=== PATIENT | female | born 1980 ===

== ENCOUNTER 2019-12-21 09:35 | Inpatient (IN) | payer OTHER ==
[2019-12-21] MEDS ORDERED: LIDOCAINE (2%) 20 MG/1 ML VIAL 20 ML MDV INFILTRATI ONE (11:16)
[2019-12-21] MEDS ORDERED: MINERAL OIL 30 ML ORAL LIQD PO PRN (11:16)
[2019-12-21] MEDS ORDERED: fentaNYL 100 MCG/2 ML INJ IV PRN (11:16)
[2019-12-21] MEDS ORDERED: TERBUTALINE 1 MG/1 ML INJ SUB-Q PRN (11:16)
[2019-12-21] MEDS ORDERED: ePHEDrine SULFATE 50 MG/1 ML INJ IV PRN (11:16)
--- NOTE | 2019-12-21 11:27 | History and Physical Report ---
History of Present Illness Date of examination: 12/21/19 Date of admission: 12/21/19 09:35 Chief complaint: Here for induction of labor. History of present illness: 39 year old presents to L&D for scheduled induction of labor. Patient received care at [facility] and records are available. LMP unknown. EDC 12/25/2020 based on US. significant for the following: gestational diabetes (has been taking Metformin), advanced maternal age, late entry to care, UTI (treated with Macrobid). labs are as follows: O+, antibody screen negative, rubella immune, hepatitis B surfacen antigen negative, RPR nonreactive, HIV negative, gonorrhea negative, chlamydia negative, GBS negative, 1 hour sugar test 152, 3 hour OGTT 85/169/157/145. Past History Past Medical History: no pertinent history, other (first spouse of HIV/AIDS (pt. tested negative)) Past Surgical History: no surgical history RESIDENTIAL MANAGER History: denies: chlamydia, gonorrhea, hepatitis B, hepatitis C, herpes, HIV, syphilis, trichomonas Family/Genetic History: none Social history: single, lives with family, full code. denies: smoking, alcohol abuse, prescription drug abuse, IV drug use - Obstetrical History Expected Date of Delivery: 12/26/19 Actual Gestation: 39 Week(s) 2 Day(s) : 6 Para: 5 Hx # Term Pregnancies: 5 Number of Pregnancies: 0 Spontaneous Abortions: 0 Induced : 0 Number of Living Children: 5 Medications and Allergies Active Meds: Active Medications Ephedrine Sulfate (Ephedrine Sulfate) 10 mg IV Q2M PRN PRN Reason: Hypotension Fentanyl (Sublimaze) 100 mcg IV Q2H PRN PRN Reason: Pain,Severe (7-10) LABOR PAIN Oxytocin/Sodium Chloride (Pitocin/Ns 30 Unit/500ml) 30 units in 500 mls @ 2 mls/hr IV TITR STACEY; Protocol Lactated Ringer's (Lactated Ringers) 1,000 mls @ 125 mls/hr IV DIRECT STACEY Lidocaine (Xylocaine 2%) 20 ml INFILTRATI ONCE ONE Stop: 12/21/19 11:17 Mineral Oil (Mineral Oil) 30 ml PO QHS PRN PRN Reason: Constipation Terbutaline Sulfate (Brethine) 0.25 mg SUB-Q ONCE PRN PRN Reason: Hyperstimulation/Hypertonicity Review of Systems All systems: negative (irregular mild contractions) - Vital Signs Vital signs: Vital Signs Pulse Pulse Ox 61 99 12/21/19 10:15 12/21/19 10:15 Temp Pulse Resp BP Pulse Ox 98.7 F 75 16 127/84 100 12/21/19 10:18 12/21/19 11:15 12/21/19 10:18 12/21/19 10:24 12/21/19 11:15 - Physical Exam Abdomen: Positive: normal appearance, soft. Negative: distention, tenderness, guarding, rigidity Genitourinary (Female): Positive: normal external genitalia, normal perenium. Negative: perineal/vulvar lesions (no lesions seen on careful exam with bright light upon admission) Uterus: Positive: enlarged. Negative: tender Anus/Rectum: Positive: normal perianal skin Extremities: Positive: normal - Obstetrical FHR: category 1 Uterine Contraction Monitor Mode: External Cervical Dilatation: 3.5 Cervical Effacement Percentage: 80 station: -2 Uterine Contraction Pattern: Irregular Uterine Contraction Intensity: Mild Results All other labs normal. Assessment and Plan A: at 39 weeks, 2 days gestation. Advanced maternal age. Gestational diabetes. GBS negative. P: Admit for scheduled IOL. Continuous EFM. Monitor blood sugars. Pitocin induction of labor. Discussed Pitocin induction of labor with patient and patient consented to Pitocin inductin of labor.
[2019-12-21] MEDS ORDERED: OXYTOCIN DRIP 30 UNITS/500 ML BAG IV SCH (12:00)
[2019-12-21 12:35] LABS: Hematocrit 32.9 % (30.3-42.9); Hemoglobin 10.9 gm/dl (10.1-14.3); Mean Corpuscular HGB Conc 33 % (30-34); Mean Corpuscular Volume 80 fl (79-97); Platelet Count 173 K/mm3 (140-440); Red Blood Count 4.11 M/mm3 (3.65-5.03); Red Cell Distribution Width 15.3 % (13.2-15.2)
[2019-12-21 13:01] LABS: Hepatitis C Virus Antibody Non-Reactive (NonReactive)
[2019-12-21] MEDS: LACTATED RINGERS 1,000 ML IV SCH (18:33)
[2019-12-21] MEDS ORDERED: diphenhydrAMINE 50 MG/ML VIAL IV PRN (20:29)
[2019-12-21] MEDS ORDERED: NalbUPHINE 10 MG/1 ML INJ IV PRN (20:29)
[2019-12-21] MEDS ORDERED: ONDANSETRON 4 MG/2 ML INJ IV PRN (20:29)
[2019-12-21] MEDS ORDERED: DEXMEDETOMIDINE 200 MCG/2 ML VIAL IV ONE (20:33)
--- NOTE | 2019-12-21 21:04 | Anesthesia Consultation ---
Anesthesia Consult and Med Hx Date of service: 12/21/19 - Airway Anesthetic Teeth Evaluation: Good ROM Head & Neck: Adequate Mental/Hyoid Distance: Adequate Mallampati Class: Class II Intubation Access Assessment: Probably Good - Pulmonary Exam CTA: Yes - Cardiac Exam Cardiac Exam: RRR - Pre-Operative Health Status ASA Pre-Surgery Classification: ASA2 Proposed Anesthetic Plan: Epidural - Pulmonary Hx Smoking: No Hx Asthma: No COPD: No Hx Pneumonia: No Hx Sleep Apnea: No - Cardiovascular System Hx Hypertension: No - Central Nervous System Hx Seizures: No Hx Psychiatric Problems: No - Gastrointestinal Hx Gastroesophageal Reflux Disease: No - Endocrine Hx End Stage Renal Disease: No Hx Non-Insulin Dependent Diabetes: Yes Hx Hypothyroidism: No Hx Hyperthyroidism: No - Hematic Hx Anemia: No Hx Sickle Cell Disease: No
--- NOTE | 2019-12-21 21:05 | Progress Note ---
Labor Epidural - Labor Epidural Start Time: 20:35 Stop Time: 21:00 Performed by:: HANNAH STOKES ([facility]) Procedure: Patient is requesting a laboring epidural for laboring pain. Patient IDed, H&P reviewed, all questions and concerns were answered, and consent was signed. Timeout was performed at bedside. Patient in sitting position. Sterile prep and drape was performed. 3ml of 1% lidocaine skin wheal at L[3]- L [4]. 18- gauge Touhy epidural needle was advanced to loss of resistance with air technique. Negative CSF negative blood. Epidural catheter advanced to [11] centimeters. [-] Aspiration [-] test dose. Sterile dressing applied. Patient tolerated procedure.
[2019-12-21] MEDS: fentaNYL-BUPIV 2 MCG/ML-0.125% 200 MCG/100 ML BAG EPIDURAL SCH (21:28)
--- NOTE | 2019-12-22 02:18 | Event Note ---
Date: 12/22/19 SVE 5-6/100/-2/BBOW. Category 1 FHR tracing.
--- NOTE | 2019-12-22 03:40 | Ultrasound Report ---
Limited OB ultrasound INDICATION: Imaging is requested to evaluate estimated weight FINDINGS: The femur length is 7.65 cm = 39 weeks 1 day Biparietal diameter is 9.54 cm = 39 weeks 0 days Abdominal circumference is 33.6 cm = 38 weeks 3 days Abdominal circumference is 34.34 cm = 38 weeks 2 days The estimated weight is 3528 g. Sonographic age is 38 weeks 5 days heart rate is 145 bpm. Signer Name: Anil Nowak MD Signed: 12/22/2019 3:36 AM Workstation Name: [id number]
[2019-12-22] MEDS: fentaNYL-BUPIV 2 MCG/ML-0.125% 200 MCG/100 ML BAG EPIDURAL SCH (06:21)
--- NOTE | 2019-12-22 09:45 | Progress Note ---
Assessment and Plan A: at 39 weeks, 3 days gestation. IOL. P: Continue current managment. Anticipate . Subjective - Subjective Date of service: 12/22/19 Principal diagnosis: at 39 weeks, 3 days gestation Interval history: Patient is being induced for diabetes. Receiving Pitocin at 4 milliunits per min. Category 1 FHR tracing. Last SVE 7/100/-2. Fetus in OP position. Position change has been instituted. EFW 3528 grams. Patient reports: movement normal, contractions, no new complaints, no loss of fluid, no vaginal bleeding Objective - Vital Signs Vital Signs: Vital Signs - 12hr 12/21/19 12/21/19 12/21/19 21:44 21:49 21:54 Temperature Pulse Rate 78 71 83 Blood Pressure O2 Sat by Pulse 98 96 99 Oximetry 12/21/19 12/21/19 12/21/19 21:59 22:04 22:05 Temperature Pulse Rate 71 76 74 Blood Pressure 91/55 O2 Sat by Pulse 98 98 Oximetry 12/21/19 12/21/19 12/21/19 22:09 22:14 22:19 Temperature Pulse Rate 85 63 51 L Blood Pressure O2 Sat by Pulse 98 98 98 Oximetry 12/21/19 12/21/19 12/21/19 22:23 22:24 22:29 Temperature Pulse Rate 69 74 55 L Blood Pressure 81/54 O2 Sat by Pulse 98 98 Oximetry 12/21/19 12/21/19 12/21/19 22:34 22:39 22:44 Temperature Pulse Rate 70 86 83 Blood Pressure 92/64 O2 Sat by Pulse 99 100 99 Oximetry 12/21/19 12/21/19 12/21/19 22:49 22:54 22:59 Temperature Pulse Rate 61 100 H 59 L Blood Pressure 87/61 O2 Sat by Pulse 98 99 99 Oximetry 12/21/19 12/21/19 12/21/19 23:04 23:09 23:14 Temperature Pulse Rate 57 L 85 58 L Blood Pressure 93/63 O2 Sat by Pulse 99 99 99 Oximetry 12/21/19 12/21/19 12/21/19 23:19 23:23 23:24 Temperature Pulse Rate 58 L 86 92 H Blood Pressure 94/63 O2 Sat by Pulse 99 99 Oximetry 12/21/19 12/21/19 12/21/19 23:29 23:34 23:39 Temperature Pulse Rate 85 60 94 H Blood Pressure 94/64 O2 Sat by Pulse 99 98 99 Oximetry 12/21/19 12/21/19 12/21/19 23:44 23:49 23:54 Temperature Pulse Rate 66 72 83 Blood Pressure 98/66 O2 Sat by Pulse 99 99 99 Oximetry 12/21/19 12/22/19 12/22/19 23:59 00:04 00:09 Temperature Pulse Rate 69 87 91 H Blood Pressure 125/89 O2 Sat by Pulse 98 99 98 Oximetry 12/22/19 12/22/19 12/22/19 00:14 00:19 00:24 Temperature Pulse Rate 71 69 91 H Blood Pressure O2 Sat by Pulse 99 99 100 Oximetry 12/22/19 12/22/19 12/22/19 00:25 00:29 00:34 Temperature Pulse Rate 74 62 90 Blood Pressure 114/69 O2 Sat by Pulse 100 99 Oximetry 12/22/19 12/22/19 12/22/19 00:39 00:44 00:49 Temperature Pulse Rate 91 H 60 72 Blood Pressure 108/70 O2 Sat by Pulse 100 98 99 Oximetry 12/22/19 12/22/19 12/22/19 00:54 00:55 00:59 Temperature Pulse Rate 74 65 64 Blood Pressure 131/71 O2 Sat by Pulse 98 99 Oximetry 12/22/19 12/22/19 12/22/19 01:04 01:09 01:14 Temperature Pulse Rate 78 66 88 Blood Pressure 123/74 O2 Sat by Pulse 99 98 99 Oximetry 12/22/19 12/22/19 12/22/19 01:19 01:24 01:29 Temperature Pulse Rate 61 68 60 Blood Pressure 102/69 O2 Sat by Pulse 98 98 98 Oximetry 12/22/19 12/22/19 12/22/19 01:34 01:39 01:44 Temperature Pulse Rate 90 77 80 Blood Pressure 128/73 O2 Sat by Pulse 99 99 99 Oximetry 12/22/19 12/22/19 12/22/19 01:49 01:54 01:59 Temperature Pulse Rate 104 H 108 H 60 Blood Pressure O2 Sat by Pulse 99 98 99 Oximetry 12/22/19 12/22/19 12/22/19 02:04 02:09 02:14 Temperature Pulse Rate 63 81 59 L Blood Pressure O2 Sat by Pulse 99 100 99 Oximetry 12/22/19 12/22/19 12/22/19 02:15 02:19 02:24 Temperature Pulse Rate 85 69 78 Blood Pressure 111/75 O2 Sat by Pulse 99 99 Oximetry 12/22/19 12/22/19 12/22/19 02:29 02:34 02:39 Temperature Pulse Rate 93 H 81 91 H Blood Pressure O2 Sat by Pulse 99 100 100 Oximetry 12/22/19 12/22/19 12/22/19 02:43 02:44 02:49 Temperature Pulse Rate 100 H 67 90 Blood Pressure 108/75 O2 Sat by Pulse 98 99 Oximetry 12/22/19 12/22/19 12/22/19 02:54 02:59 03:04 Temperature Pulse Rate 68 70 79 Blood Pressure O2 Sat by Pulse 99 99 99 Oximetry 12/22/19 12/22/19 12/22/19 03:09 03:13 03:14 Temperature Pulse Rate 71 94 H 93 H Blood Pressure 154/92 O2 Sat by Pulse 99 98 Oximetry 12/22/19 12/22/19 12/22/19 03:19 03:24 03:29 Temperature Pulse Rate 107 H 83 93 H Blood Pressure O2 Sat by Pulse 99 99 99 Oximetry 12/22/19 12/22/19 12/22/19 03:34 03:39 03:43 Temperature Pulse Rate 71 101 H 80 Blood Pressure 125/84 O2 Sat by Pulse 98 98 Oximetry 12/22/19 12/22/19 12/22/19 03:44 03:48 03:49 Temperature 98.6 F Pulse Rate 115 H 72 Blood Pressure O2 Sat by Pulse 99 98 Oximetry 12/22/19 12/22/19 12/22/19 03:54 03:59 04:04 Temperature Pulse Rate 68 69 84 Blood Pressure O2 Sat by Pulse 97 97 98 Oximetry 12/22/19 12/22/19 12/22/19 04:09 04:14 04:19 Temperature Pulse Rate 121 H 71 92 H Blood Pressure 128/79 O2 Sat by Pulse 99 97 99 Oximetry 12/22/19 12/22/19 12/22/19 04:24 04:29 04:34 Temperature Pulse Rate 68 83 99 H Blood Pressure O2 Sat by Pulse 98 98 98 Oximetry 12/22/19 12/22/19 12/22/19 04:39 04:43 04:44 Temperature Pulse Rate 99 H 113 H 117 H Blood Pressure 113/74 O2 Sat by Pulse 100 99 Oximetry 12/22/19 12/22/19 12/22/19 04:49 04:54 04:59 Temperature Pulse Rate 94 H 81 80 Blood Pressure O2 Sat by Pulse 99 99 98 Oximetry 12/22/19 12/22/19 12/22/19 05:04 05:09 05:14 Temperature Pulse Rate 78 83 91 H Blood Pressure O2 Sat by Pulse 99 99 99 Oximetry 12/22/19 12/22/19 12/22/19 05:15 05:19 05:24 Temperature Pulse Rate 74 116 H 74 Blood Pressure 143/79 O2 Sat by Pulse 93 100 98 Oximetry 12/22/19 12/22/19 12/22/19 05:29 05:34 05:39 Temperature Pulse Rate 107 H 115 H 80 Blood Pressure O2 Sat by Pulse 96 99 98 Oximetry 12/22/19 12/22/19 12/22/19 05:43 05:44 05:49 Temperature Pulse Rate 116 H 88 74 Blood Pressure 103/71 O2 Sat by Pulse 98 98 Oximetry 12/22/19 12/22/19 12/22/19 05:54 05:59 06:04 Temperature Pulse Rate 84 97 H 94 H Blood Pressure O2 Sat by Pulse 99 99 99 Oximetry 12/22/19 12/22/19 12/22/19 06:09 06:14 06:19 Temperature Pulse Rate 84 90 73 Blood Pressure 133/86 O2 Sat by Pulse 98 99 99 Oximetry 12/22/19 12/22/19 12/22/19 06:24 06:29 06:34 Temperature Pulse Rate 83 82 79 Blood Pressure O2 Sat by Pulse 99 100 98 Oximetry 12/22/19 12/22/19 12/22/19 06:39 06:44 06:49 Temperature Pulse Rate 92 H 75 94 H Blood Pressure 122/75 O2 Sat by Pulse 98 98 98 Oximetry 12/22/19 12/22/19 12/22/19 06:54 06:59 07:04 Temperature Pulse Rate 74 76 77 Blood Pressure O2 Sat by Pulse 97 97 97 Oximetry 12/22/19 12/22/19 12/22/19 07:09 07:13 07:14 Temperature Pulse Rate 81 106 H 91 H Blood Pressure 117/76 O2 Sat by Pulse 96 98 Oximetry 12/22/19 12/22/19 12/22/19 07:19 07:24 07:29 Temperature Pulse Rate 85 111 H 93 H Blood Pressure O2 Sat by Pulse 99 99 98 Oximetry 12/22/19 12/22/19 12/22/19 07:34 07:39 07:44 Temperature Pulse Rate 124 H 95 H 111 H Blood Pressure 125/81 O2 Sat by Pulse 100 98 99 Oximetry 12/22/19 12/22/19 12/22/19 07:49 07:54 07:59 Temperature Pulse Rate 120 H 82 116 H Blood Pressure O2 Sat by Pulse 99 98 99 Oximetry 12/22/19 12/22/19 12/22/19 08:04 08:09 08:13 Temperature Pulse Rate 69 109 H 80 Blood Pressure 134/80 O2 Sat by Pulse 98 98 Oximetry 12/22/19 12/22/19 12/22/19 08:14 08:19 08:24 Temperature Pulse Rate 107 H 71 87 Blood Pressure O2 Sat by Pulse 99 98 99 Oximetry 12/22/19 12/22/19 12/22/19 08:29 08:34 08:39 Temperature Pulse Rate 93 H 82 121 H Blood Pressure O2 Sat by Pulse 98 99 99 Oximetry 12/22/19 12/22/19 12/22/19 08:44 08:49 08:54 Temperature Pulse Rate 67 118 H 74 Blood Pressure 142/71 O2 Sat by Pulse 98 100 98 Oximetry 12/22/19 12/22/19 12/22/19 08:59 09:04 09:09 Temperature Pulse Rate 122 H 114 H 82 Blood Pressure O2 Sat by Pulse 98 99 98 Oximetry 12/22/19 12/22/19 12/22/19 09:13 09:14 09:19 Temperature Pulse Rate 83 127 H 77 Blood Pressure 124/78 O2 Sat by Pulse 98 98 Oximetry 12/22/19 12/22/19 12/22/19 09:24 09:29 09:34 Temperature Pulse Rate 97 H 100 H 80 Blood Pressure O2 Sat by Pulse 99 99 99 Oximetry 12/22/19 09:39 Temperature Pulse Rate 98 H Blood Pressure O2 Sat by Pulse 99 Oximetry - Exam Abdomen: Present: normal appearance, soft. Absent: distention, tenderness, guarding, rigidity FHR: category 1 Uterine Contraction Monitor Mode: External Cervical Dilatation: 7 Cervical Effacement Percentage: 100 station: -2 Uterine Contraction Pattern: Regular Uterine Contraction Intensity: Moderate - Labs Labs: Abnormal Labs 12/21/19 12/21/19 12/21/19 11:30 17:37 22:06 MCH 26 L RDW 15.3 H POC Glucose 69 L 110 H Laboratory Results - last 24 hr 12/21/19 12/21/19 12/21/19 11:30 11:30 11:30 WBC 5.1 RBC 4.11 Hgb 10.9 Hct 32.9 MCV 80 MCH 26 L MCHC 33 RDW 15.3 H Plt Count 173 POC Glucose Syphilis IgG Antibody Nonreactive Hep Bs Antigen Hepatitis C Antibody Non-reactive HIV 1&2 Antibody Rapid HIV P24 Antigen Blood Type O POSITIVE Antibody Screen Negative 12/21/19 12/21/19 12/21/19 11:30 11:30 17:37 WBC RBC Hgb Hct MCV MCH MCHC RDW Plt Count POC Glucose 69 L Syphilis IgG Antibody Hep Bs Antigen Non-reactive Hepatitis C Antibody HIV 1&2 Antibody Rapid Non react HIV P24 Antigen Non react Blood Type Antibody Screen 12/21/19 12/22/19 12/22/19 22:06 02:37 06:46 WBC RBC Hgb Hct MCV MCH MCHC RDW Plt Count POC Glucose 110 H 83 85 Syphilis IgG Antibody Hep Bs Antigen Hepatitis C Antibody HIV 1&2 Antibody Rapid HIV P24 Antigen Blood Type Antibody Screen
[2019-12-22] MEDS: LACTATED RINGERS 1,000 ML IV SCH (11:16)
[2019-12-22] MEDS ORDERED: LANOLIN/ZINC/DIMETHICONE (LANSINOH) 7 GM TP PRN (15:24)
[2019-12-22] MEDS ORDERED: HYDROcodone/ACETAMINOPHEN 5-325 MG TAB PO PRN (15:24)
[2019-12-22] MEDS ORDERED: WITCH HAZEL/ GLYCERIN PAD TP PRN (15:24)
[2019-12-22] MEDS ORDERED: MAGNESIUM HYDROXIDE (MOM) ORAL LIQD UDC PO PRN (15:24)
--- NOTE | 2019-12-22 15:37 | Procedure Note ---
OB Delivery Note - Delivery Date of Delivery: 12/22/19 Surgeon: GERRY ALEXANDER Estimated blood loss: other (350 cc) - Vaginal Delivery presentation: vertex Delivery position: OA Intrapartum events: none Delivery induction: oxytocin Delivery augmentation: rupture of membranes Delivery monitor: external FHT, external uterine Route of delivery: Delivery placenta: spontaneous Delivery cord: 3 umbilical vessels Episiotomy: none Anesthesia: epidural Delivery comments: Spontaneous vaginal delivery at 15:00 of liveborn male weighing 8 lb. 1 oz. over intact perineum with apgars of 8/9. No nuchal cord. Baby delivered gently and easily. Terminal meconium. Baby placed skin to skin with mom immediately after delivery. Spontaneous cry and respirations. Baby bulb suctioned and dried with warm blankets. 3 vessel cord double clamped and cut and baby taken to radiant warmer for further suctioning. Cord blood obtained. Spontaneous delivery of intact placenta and membranes by peralta mechanism. EBL 350 cc. Pitocin to IV fluids after delivery of placenta. Fundus firm and midline. No lacerations noted. Vaginal sweep negative. Sponge count correct. Mother and baby stable.
[2019-12-22] MEDS: IBUPROFEN 600 MG TAB PO SCH ×2 (17:11→21:20)
[2019-12-22] MEDS: FERROUS SULFATE 325 MG TAB PO SCH (21:20)
[2019-12-23 04:58] LABS: Hematocrit 24.2 % (30.3-42.9); Hemoglobin 8.1 gm/dl (10.1-14.3)
[2019-12-23] MEDS: IBUPROFEN 600 MG TAB PO SCH ×3 (05:46→21:04)
--- NOTE | 2019-12-23 10:11 | Post Anesthesia Evaluation ---
- Post Anesthesia Evaluation Patient Participated: Yes Airway Patent: Yes Stable Respiratory Function: Yes Nausea/Vomiting: No Temp > 96.8F: Yes Pain Manageable: Yes Adequeate Hydration: Yes Anesthesia Complications: No Block Receding Appropriately: Yes Patient on Ventilator: No
[2019-12-23] MEDS: FERROUS SULFATE 325 MG TAB PO SCH ×2 (10:17→21:04)
--- NOTE | 2019-12-23 10:18 | Progress Note ---
Assessment and Plan A: day 1 S/P . Anemia. P: Supplement with iron. Anticipate discharge tomorrow. Subjective - Subjective Date of service: 12/23/19 Principal diagnosis: day 1 S/P Patient reports: appetite normal, voiding normally, pain well controlled, flatus, ambulating normally, no dizzy ambulation, no nauseated : doing well Objective - Vital Signs Latest vital signs: Vital Signs Temp Pulse Resp BP Pulse Ox 12/23/19 08:11 97.9 F 63 18 132/80 98 12/23/19 06:36 18 12/23/19 05:46 18 12/23/19 05:36 98.5 F 63 20 128/75 100 12/23/19 00:07 98.0 F 67 20 137/77 97 12/22/19 22:20 18 12/22/19 21:20 98.2 F 78 20 99 12/22/19 21:19 98.5 F 76 20 128/73 96 12/22/19 17:51 98.9 F 20 12/22/19 17:48 98.8 F 18 12/22/19 17:35 80 124/77 99 12/22/19 17:10 98.4 F 20 12/22/19 17:00 90 127/59 12/22/19 16:59 89 100 12/22/19 16:54 86 99 12/22/19 16:49 89 99 12/22/19 16:45 83 139/65 12/22/19 16:44 89 99 12/22/19 16:39 86 99 12/22/19 16:34 90 99 12/22/19 16:30 90 125/80 12/22/19 16:29 96 H 99 12/22/19 16:24 99 H 98 12/22/19 16:19 89 99 12/22/19 16:15 90 121/82 12/22/19 16:14 100 H 100 12/22/19 16:09 90 99 12/22/19 16:04 94 H 99 12/22/19 16:00 98.6 F 103 H 20 118/83 12/22/19 15:59 102 H 99 12/22/19 15:54 96 H 99 12/22/19 15:49 104 H 99 12/22/19 15:45 93 H 119/75 10/17/20 15:44 98 H 99 17/20 15:39 99 H 99 17/20 15:34 99 H 100 17/20 15:30 94 H 116/71 12/21/20 15:29 104 H 99 17/20 15:24 86 99 17/20 15:19 93 H 99 17/20 15:14 113 H 99 20 15:13 91 H 138/85 12/21/20 15:10 98.8 F 18 12/21/20 15:09 98 H 100 17/20 15:04 87 99 17/20 14:59 152 H 96 12/21/20 14:54 92 H 99 20 14:49 99 H 99 20 14:44 81 146/78 98 17/20 14:39 90 99 20 14:34 86 99 20 14:29 85 98 20 14:24 84 98 20 14:19 80 99 20 14:14 79 99 20 14:13 82 126/69 12/21/20 14:09 86 99 12/21/20 14:04 88 99 12/21/20 13:59 85 98 17/20 13:54 84 98 17/20 13:49 81 98 17/20 13:44 89 99 12/21/20 13:43 84 132/67 17/20 13:39 82 99 17/20 13:34 89 98 17/20 13:29 83 98 17/20 13:24 86 99 17/20 13:19 83 99 17/20 13:14 88 99 17/20 13:13 82 121/60 17/20 13:09 85 98 17/20 13:04 80 98 17/20 12:59 83 98 17/20 12:54 86 99 17/20 12:49 87 98 17/20 12:44 90 122/83 99 17/20 12:39 83 99 17/20 12:34 93 H 99 17/20 12:29 84 99 17/20 12:24 80 99 12/22/19 12:19 83 99 12/22/19 12:14 87 98 12/22/19 12:13 96 H 131/82 12/22/19 12:09 98 H 99 12/22/19 12:04 92 H 99 12/22/19 11:59 91 H 98 12/22/19 11:54 88 98 12/22/19 11:49 98.8 F 82 20 98 12/22/19 11:45 80 134/74 94 12/22/19 11:44 86 98 12/22/19 11:39 92 H 98 12/22/19 11:34 95 H 98 12/22/19 11:29 94 H 98 12/22/19 11:24 86 98 12/22/19 11:19 83 97 12/22/19 11:14 102 H 98 12/22/19 11:13 84 136/73 93 12/22/19 11:09 96 H 98 12/22/19 11:04 95 H 98 12/22/19 10:59 88 97 12/22/19 10:54 86 97 12/22/19 10:49 80 97 12/22/19 10:44 84 135/74 97 12/22/19 10:39 88 96 12/22/19 10:34 87 97 12/22/19 10:29 78 97 12/22/19 10:24 79 97 12/22/19 10:19 81 97 Intake and Output 12/22/19 12/23/19 12/23/19 23:59 07:59 15:59 Intake Total 480 240 Output Total 1200 Balance -720 240 Intake: Oral 480 240 Output: Urine 1200 Indwelling Catheter 600 Void 600 Other: Total, Intake Amount 240 240 Total, Output Amount 600 # Voids Void 1 - Exam Cardiovascular: Present: Regular rate, No murmurs Lungs: Present: Clear to auscultation Abdomen: Present: normal appearance, soft. Absent: distention, tenderness, guarding, rigidity Uterus: Present: normal, firm, fundal height below umbilicus. Absent: bogginess, tenderness Extremities: Present: normal. Absent: tenderness - Labs Labs: Abnormal lab results 12/23/19 Range/Units 03:54 Hgb 8.1 L (10.1-14.3) gm/dl Hct 24.2 L D (30.3-42.9) %
[2019-12-24] MEDS: IBUPROFEN 600 MG TAB PO SCH ×2 (05:07→10:19)
--- NOTE | 2019-12-24 06:14 | Progress Note ---
Assessment and Plan A: day 2 S/P . Anemia. P: Discharge patient home today. Discussed with patient discharge instructions and warning signs. Advised patient to continue taking her vitamins and iron supplements at home. Advised patient to avoid intercourse, lifting, housework. Advised patient to follow up at [facility] in 6 weeks for exam. Patient voiced understanding of all instructions. Subjective - Subjective Date of service: 12/24/19 Principal diagnosis: day 2 S/P Interval history: day 2 S/P . Patient wants to go home today. Patient reports: appetite normal, voiding normally, pain well controlled, ambulating normally, no dizzy ambulation, no nauseated : doing well Objective - Vital Signs Latest vital signs: Vital Signs Temp Pulse Resp BP Pulse Ox 12/24/19 06:06 18 12/24/19 05:07 18 12/24/19 01:16 98.2 F 77 20 129/77 99 12/23/19 22:04 18 12/23/19 21:04 18 12/23/19 16:50 98.3 F 77 18 134/75 99 12/23/19 12:36 98.2 F 81 18 128/87 99 12/23/19 08:11 97.9 F 63 18 132/80 98 12/23/19 06:36 18 Intake and Output 12/23/19 12/23/19 12/24/19 15:59 23:59 07:59 Intake Total 480 240 500 Balance 480 240 500 Intake: Oral 480 240 Intake, Free Water 500 Other: Total, Intake Amount 240 240 # Voids Void 3 1 - Exam Cardiovascular: Present: Regular rate, No murmurs Lungs: Present: Clear to auscultation Abdomen: Present: normal appearance, soft, normal bowel sounds. Absent: distention, tenderness, guarding, rigidity Uterus: Present: normal, firm, fundal height below umbilicus. Absent: bogginess, tenderness Extremities: Present: normal. Absent: tenderness, edema
--- NOTE | 2019-12-24 06:20 | Discharge Summary ---
Providers - Providers Date of Admission: 12/21/19 09:35 Date of discharge: 12/24/19 Attending physician: SHELLIE CASTELLON JR, MD Primary care physician: SHELLIE CASTELLON JR, MD Hospitalization Reason for admission: induction of labor Delivery: Episiotomy: none Laceration: none Other procedures: none complications: none Discharge diagnosis: IUP at term delivered [place] baby: male Pertinent studies: Labs Hospital course: Stable hospital course. Condition at discharge: Good Disposition: DC-01 TO HOME OR SELFCARE - Discharge Diagnoses (1) Term delivered Status: Acute (2) Anemia Status: Acute Plan - Provider Discharge Summary Activity: routine, no sex for 6 weeks, no heavy lifting 4 weeks, no strenuous exercise Diet: routine Instructions: routine Additional instructions: Continue taking your vitamin and iron supplements at home. Call your doctor immediately for: * Fever > 100.5 * Heavy vaginal bleeding ( >1 pad per hour) * Severe persistent headache * Shortness of breath * Reddened, hot, painful area to leg or breast - Follow up plan Follow up: SHELLIE CASTELLON JR, MD [Primary Care Provider] - 6 Weeks
[2019-12-24] MEDS: FERROUS SULFATE 325 MG TAB PO SCH (10:19)
[2019-12-24 13:22] VITALS: BP 136/79
== END 2019-12-24 14:55 | disposition home or self-care (01) | DRG 807 ==
LOC: LD 09:35 → OB 12-22 17:25
PROVIDERS: ADMIT Obstetrics & Gynecology; ATTEND Obstetrics & Gynecology
PROC: 10E0XZZ Delivery of Products of Conception, External Approach (ICD-10-PCS; principal; 2019-12-22)
PROC: 3E0R3BZ Introduction of Anesthetic Agent into Spinal Canal, Percutaneous Approach (ICD-10-PCS; 2019-12-22)
PROC: 00HU33Z Insertion of Infusion Device into Spinal Canal, Percutaneous Approach (ICD-10-PCS; 2019-12-22)
PROC: 3E033VJ Introduction of Other Hormone into Peripheral Vein, Percutaneous Approach (ICD-10-PCS; 2019-12-22)
DX: O24.429 Gestational diabetes mellitus in childbirth, unspecified control (principal); Z37.0 Single live birth; Z20.828 Contact with and (suspected) exposure to other viral communicable diseases; Z3A.39 39 weeks gestation of pregnancy; O77.0 Labor and delivery complicated by meconium in amniotic fluid; O99.02 Anemia complicating childbirth; D64.9 Anemia, unspecified
CPT/HCPCS: 36415; 76815; 76816; 82962; 85014; 85018; 85027; 86592; 86706; 86803; 86850; 86900; 86901; 87806; 88307; G0378; J2590; J3010; J7120; U0003-CS